=== PATIENT | female | born 1960 | race Caucasian/White ===

== ENCOUNTER 2017-12-15 10:19 | Emergency (ER) | payer OTHER ==
[2017-12-15] MEDS ORDERED: NS 1,000 ML IV ONE (10:56)
[2017-12-15] MEDS ORDERED: KETAMINE 200 MG/20 ML VIAL IVP ONE (10:58)
[2017-12-15 11:01] LABS: PLATELET COUNT 290 10^3/uL (150-400)
--- NOTE | 2017-12-15 12:08 | EDPHY ---
H & P Time Seen by Provider: 12/15/17 10:29 HPI/ROS: CHIEF COMPLAINT: Right-sided abdominal pain HISTORY OF PRESENT ILLNESS: 57-year-old female with a history of kidney stones presents with right-sided abdominal pain. Onset of crampy abdominal pain 4 days ago. Onset of right flank pain yesterday. The pain is constant and moderate to severe. The pain increases with movement. No urinary symptoms and no prior similar symptoms. REVIEW OF SYSTEMS: complete 10 point ROS negative except at noted in the HPI Past Medical/Surgical History: Kidney stones Social History: No recent alcohol Smoking Status: Never smoked Physical Exam: General Appearance: Alert, pleasant, appears in pain with movement Eyes: Pupils equal and round, no conjunctival pallor or injection ENT, Mouth: Mucous membranes moist Neck: Normal inspection Respiratory: Lungs are clear to auscultation Cardiovascular: Regular rate and rhythm Gastrointestinal: Abdomen is soft, right upper quadrant tenderness Back: Normal inspection, no CVA tenderness Neurological: A&O, nonfocal, normal gait Skin: Warm and dry, no rash Extremities: Nontender, no pedal edema Psychiatric: Mood and affect normal Constitutional: Initial Vital Signs Temperature (C) 36.5 C 12/15/17 10:25 Heart Rate 86 12/15/17 10:25 Respiratory Rate 18 12/15/17 10:25 Blood Pressure 112/74 12/15/17 10:25 O2 Sat (%) 96 12/15/17 10:25 O2 Delivery Mode Room Air Allergies/Adverse Reactions: ketorolac [From Toradol] Allergy (Verified 12/15/17 10:23) meperidine [From Demerol] Allergy (Verified 12/15/17 10:23) Home Medications: Medication Instructions Recorded DULoxetine 12/15/17 Estradiol 12/15/17 Levothyroxine 12/15/17 Liothyronine Sodium 12/15/17 Topiramate 12/15/17 Medical Decision Making - Diagnostics Imaging Results: Imaging Impressions Abdomen/Pelvis CT 12/15/17 10:57 Impression: 1. No nephrolithiasis or hydronephrosis. 2. Constipation. 3. Atherosclerotic aorta without aneurysm. 4. No bowel obstruction. Attention: This CT examination is specifically designed to evaluate patients who are clinically suspected of having acute obstructive uropathy. This examination does not use radiographic contrast, and as such, provides only a limited evaluation of the abdomen, pelvis and retroperitoneum. If there is further clinical suspicion for pathological conditions other than obstructive uropathy, a complete CT evaluation of the abdomen and pelvis utilizing intravenous, oral, and rectal contrast should be considered. Findings and recommendations discussed with Emergency Department physician, Mare Carpenter at 1138 hour, 12/15/2017. Final report concurs with initial preliminary interpretation. Abdomen Ultrasound 12/15/17 12:03 Impression: No cholelithiasis or biliary ductal dilation. Findings and recommendations discussed with Emergency Department physician, MARE CARPENTER at 13:00 hour, 12/15/2017. Final report concurs with initial preliminary interpretation. ED Course/Re-evaluation: This patient presents with right-sided abdominal pain and flank pain, concerning for renal colic. Stat CT scan of the abdomen pelvis ordered. Ketamine IV ordered, but the patient declines pain medication. CT scan results discussed with the patient. Continues to have abdominal and flank pain, better if she remains still. Query musculoskeletal etiology. Ultrasound of the right upper quadrant ordered to rule out gallstones. If this test is normal, will discharge the patient home. Right upper quadrant ultrasound is unremarkable, read by Dr. Sebastian. Results discussed with the patient. Abdominal exam is unchanged. Likely musculoskeletal etiology of pain. Abdominal pain precautions given. Will follow up with PCP. Differential Diagnosis: Differential diagnosis includes though it is not limited to appendicitis, cholecystitis, diverticulitis, pyelonephritis, bowel perforation, small bowel obstruction. - Data Points Laboratory Results: Laboratory Results 12/15/17 10:41 12/15/17 10:41 12/15/17 12/15/17 12/15/17 10:41 10:41 10:15 WBC 7.73 10^3/uL 10^3/uL (3.80-9.50) RBC 5.49 10^6/uL H 10^6/uL (4.18-5.33) Hgb 16.2 g/dL g/dL (12.6-16.3) Hct 48.1 % H % (38.0-47.0) MCV 87.6 fL fL (81.5-99.8) MCH 29.5 pg pg (27.9-34.1) MCHC 33.7 g/dL g/dL (32.4-36.7) RDW 12.1 % % (11.5-15.2) Plt Count 290 10^3/uL 10^3/uL (150-400) MPV 10.7 fL fL (8.7-11.7) Neut % (Auto) 50.1 % % (39.3-74.2) Lymph % (Auto) 39.5 % % (15.0-45.0) [place] % (Auto) 7.4 % % (4.5-13.0) Eos % (Auto) 2.2 % % (0.6-7.6) Baso % (Auto) 0.4 % % (0.3-1.7) Nucleat RBC Rel Count 0.0 % % (0.0-0.2) Absolute Neuts (auto) 3.88 10^3/uL 10^3/uL (1.70-6.50) Absolute Lymphs (auto) 3.05 10^3/uL H 10^3/uL (1.00-3.00) Absolute Monos (auto) 0.57 10^3/uL 10^3/uL (0.30-0.80) Absolute Eos (auto) 0.17 10^3/uL 10^3/uL (0.03-0.40) Absolute Basos (auto) 0.03 10^3/uL 10^3/uL (0.02-0.10) Absolute Nucleated RBC 0.00 10^3/uL 10^3/uL (0-0.01) Immature Gran % 0.4 % % (0.0-1.1) Immature Gran # 0.03 10^3/uL 10^3/uL (0.00-0.10) Sodium 142 mEq/L mEq/L (135-145) Potassium 4.6 mEq/L mEq/L (3.5-5.2) Chloride 105 mEq/L mEq/L (97-110) Carbon Dioxide 23 mEq/l mEq/l (22-31) Anion Gap 14 mEq/L mEq/L (8-16) BUN 19 mg/dL mg/dL (7-23) Creatinine 0.7 mg/dL mg/dL (0.6-1.0) Estimated GFR > 60 Glucose 94 mg/dL mg/dL (70-100) Calcium 9.9 mg/dL mg/dL (8.5-10.4) Total Bilirubin 0.5 mg/dL mg/dL (0.1-1.4) Conjugated Bilirubin 0.4 mg/dL mg/dL (0.0-0.5) Unconjugated Bilirubin 0.1 mg/dL mg/dL (0.0-1.1) AST 27 IU/L IU/L (14-46) ALT 35 IU/L IU/L (9-52) Alkaline Phosphatase 131 IU/L H IU/L (38-126) Total Protein 7.6 g/dL g/dL (6.3-8.2) Albumin 4.7 g/dL g/dL (3.5-5.0) Lipase 106 IU/L IU/L (23-300) Urine Color YELLOW Urine Appearance CLEAR Urine pH 6.0 (5.0-7.5) Ur Specific [place] 1.018 (1.002-1.030) Urine Protein NEGATIVE (NEGATIVE) Urine Ketones NEGATIVE (NEGATIVE) Urine Blood NEGATIVE (NEGATIVE) Urine Nitrate NEGATIVE (NEGATIVE) Urine Bilirubin NEGATIVE (NEGATIVE) Urine Urobilinogen NEGATIVE EU EU (0.2-1.0) Ur Leukocyte Esterase NEGATIVE (NEGATIVE) Urine Glucose NEGATIVE (NEGATIVE) Medications Given: Discontinued Medications Sodium Chloride (Ns) 1,000 mls @ 0 mls/hr IV EDNOW ONE; Wide Open PRN Reason: Protocol Stop: 12/15/17 10:57 Last Admin: 12/15/17 11:43 Dose: 1,000 mls Ketamine HCl (Ketamine) 10.1 mg 0.2 mg/kg (10.1 mg) IVP EDNOW ONE Stop: 12/15/17 10:59 Last Admin: 12/15/17 12:18 Dose: Not Given Departure - Departure Disposition: Home, Routine, Self-Care Clinical Impression: Abdominal pain Qualifiers: Abdominal location: right upper quadrant Qualified Code(s): R10.11 - Right upper quadrant pain Condition: Good Instructions: Acute Abdominal Pain (ED) Additional Instructions: Sometimes we are unable to diagnose an obvious cause of abdominal pain in the Emergency Department. Based upon our evaluation today, we see no obvious explanation for your pain. Because more serious conditions can be difficult to diagnose early in the course of their presentation, we ask that you return to the Emergency Department in 12-24 hours for a recheck if you are still having pain. This is necessary to exclude the development of a more serious condition such as appendicitis or other intra-abdominal emergency. In the event your pain markedly increases before that time or you develop intractable vomiting or fever return to the Emergency Department immediately. Referrals: PERRY RESENDIZ [Primary Care Provider] - 1 day, if not improved
[2017-12-15 13:26] VITALS: BP 114/77
== END 2017-12-15 13:33 | disposition home or self-care (01) ==
DX: R10.11 Right upper quadrant pain (principal); E86.9 Volume depletion, unspecified